=== PATIENT | female | born 1960 | race Caucasian/White ===

== ENCOUNTER → 2016-08-08 | Outpatient (CLI) | payer BC ==
[~2016-08-08] MED LIST: CLIN150C PO; CRDCD180 PO; HYDC25 PO; LISI40TA PO; POTA10CA28 PO
--- NOTE | 2016-08-08 09:23 | DIAGNOSTIC IMAGING REPORT ---
THYROID ULTRASOUND HISTORY: Follow-up thyroid nodules. COMPARISON: Thyroid ultrasound 08/01/2015. FINDINGS: Right lobe: 4.5 x 1.5 x 1.6 cm. No nodules. Left lobe: 4.4 x 1.4 x 1.3 cm. There is a 3 mm hypoechoic nodule within the interpolar region of the left thyroid lobe. Stable 9 x 8 mm hypoechoic nodule within the lower pole. Isthmus: 2 mm in thickness. No nodules. IMPRESSION: Stable 9 mm hypoechoic nodule within the lower pole of the left thyroid lobe. Electronically signed by: Ezequiel Ramsey M.D. 08/08/2016 9:22 AM Dictated Date/Time: 08/08/2016 9:20 AM
== END | disposition home or self-care (01) ==
LOC: C.ULTR 08:28
PROVIDERS: ATTEND Internal Medicine
DX: E04.1 Nontoxic single thyroid nodule (principal)

== ENCOUNTER → 2016-08-20 | Outpatient (CLI) | payer BC | END | disposition home or self-care (01) | LOC: C.PAPS 12:31 | PROVIDERS: ATTEND Obstetrics & Gynecology | DX: Z01.419 Encounter for gynecological examination (general) (routine) without abnormal findings (principal); N95.2 Postmenopausal atrophic vaginitis ==

== ENCOUNTER → 2016-12-21 | Outpatient (CLI) | payer BC ==
--- NOTE | 2016-12-24 07:44 | MAMMOGRAPHY REPORT ---
BILATERAL DIGITAL SCREENING MAMMOGRAM TOMOSYNTHESIS WITH CAD: 12/21/2016 CLINICAL HISTORY: Routine screening. Patient has no complaints. TECHNIQUE: Breast tomosynthesis in addition to standard 2D mammography was performed. Current study was also evaluated with a Computer Aided Detection (CAD) system. COMPARISON: Comparison is made to exams dated: 12/21/2015 mammogram, 11/24/2014 ultrasound, 11/24/2014 ma mmogram, 05/24/2014 ultrasound, 05/24/2014 mammogram, and 11/16/2013 ultrasound - [facility]. BREAST COMPOSITION: The tissue of both breasts is heterogeneously dense, which may obscure small mas ses. FINDINGS: No suspicious masses, calcifications, or areas of architectural distortion are noted in ei ther breast. There has been no significant interval change compared to prior exams. Circumscribed be nign-appearing 10 mm mass in the left superior breast at approximately 11 to 12:00 is decreased in si ze compared to the October 2013 exam and is therefore benign and likely represents a cyst. A linear sca r marker denotes a scar on the left anterior breast. A few scattered benign-appearing left breast ca lcifications are again noted. IMPRESSION: ACR BI-RADS CATEGORY 2: BENIGN There is no mammographic evidence of malignancy. A 1 year screening mammogram is recommended. The pa tient will receive written notification of the results. Approximately 10% of breast cancers are not detected with mammography. A negative mammographic report should not delay biopsy if a clinically suggestive mass is present. Grace Godwin M.D. /:12/21/2016 16:06:45 Armature Inspector: Gabi Soares, [facility] letter sent: Normal 1/2 BI-RADS Code: ACR BI-RADS Category 2: Benign
== END | disposition home or self-care (01) ==
LOC: C.MAMM 15:18
PROVIDERS: ATTEND Internal Medicine
DX: Z12.31 Encounter for screening mammogram for malignant neoplasm of breast (principal)

== ENCOUNTER → 2017-04-22 | Outpatient (CLI) | payer BC ==
[2017-04-22 12:12] LABS: BASO ABS # 0.04 K/uL (0-0.2); COMPLETE YES; EOS % 1.7 %; HEMATOCRIT 37.8 % (37-47); IG% 0.2 %; LYMPH % 33.3 %; LYMPH ABS # 1.35 K/uL (1.2-3.4); MEAN CELL VOLUME 91.1 fL (80-100); MEAN CORPUSCULAR HGB CONC 35.2 g/dl (32-36); MEAN PLATELET VOLUME 9.2 fL (7.4-10.4); MONO % 8.9 %; NEUT % 54.9 %; PLATELET COUNT 286 K/uL (130-400); RED BLOOD COUNT 4.15 M/uL (4.2-5.4); WHITE BLOOD COUNT 4.05 K/uL (4.8-10.8)
[2017-04-22 12:36] LABS: ALT/SGPT 24 U/L (12-78); BLOOD UREA NITROGEN 13 mg/dl (7-18); BUN/CREATININE RATIO 20.9 (10-20); CALCIUM 9.6 mg/dl (8.5-10.1); CARBON DIOXIDE 26 mmol/L (21-32); CHLORIDE 97 mmol/L (98-107); CHOLESTEROL 170 mg/dl (0-200); CREATININE 0.63 mg/dl (0.60-1.20); GLUCOSE 86 mg/dl (70-99); POTASSIUM 3.6 mmol/L (3.5-5.1); SODIUM 133 mmol/L (136-145)
[2017-04-22 12:47] LABS: ALB/GLOB RATIO 0.9 (0.9-2); ALKALINE PHOSPHATASE 73 U/L (45-117); AST/SGOT 23 U/L (15-37); CHOLESTEROL/HDL RATIO 2.4; HDL CHOLESTEROL 70 mg/dl; LDL CHOLESTEROL CALCULATED 82 mg/dl; TRIGLYCERIDES 92 mg/dl (0-150); VERY LOW DENSITY LIPOPROT CALC 18 mg/dl
== END | disposition home or self-care (01) ==
LOC: C.LABBFT 10:02
PROVIDERS: ATTEND Internal Medicine
DX: Z11.59 Encounter for screening for other viral diseases (principal); I71.2 Thoracic aortic aneurysm, without rupture

== ENCOUNTER 2022-07-09 19:56 | Observation (INO) ==
[2022-07-09] MEDS ORDERED: SODIUM CHLORIDE 0.9% 500 ML IV STA (20:03)
[2022-07-09 20:27] LABS: POC Urine Bilirubin Negative (Negative); POC Urine Blood Negative (Negative); POC Urine Glucose Normal (Normal); POC Urine Ketones Negative (Negative); POC Urine Leukocytes Negative (Negative); POC Urine Nitrite Negative (Negative); POC Urine Protein Trace (Negative); POC Urine Urobilinogen Normal (Normal); POC Urine pH 6 (4.5-7.5)
[2022-07-09 20:37] LABS: Appearance Urine Clear (Clear); Bilirubin Urine Negative (Negative); Blood Urine Negative (Negative); Color Urine Yellow; Glucose Urine UA Negative (Negative); Ketones Urine Negative (Negative); Leukocyte Esterase Urine Negative (Negative); Nitrite Urine Negative (Negative); Protein Urine Negative (Negative); Specific Gravity Urine 1.017 (1.000-1.030); Urobilinogen Urine Negative (Negative)
[2022-07-09 20:42] LABS: Basophils # (auto) 0.04 K/uL (0-0.2); Basophils % (auto) 0.7 %; Eosinophils # (auto) 0.06 K/uL (0-0.50); Hematocrit (blood only) 39.2 % (37.0-47.0); Hemoglobin 13.6 g/dl (12.0-16.0); Immature Granulocytes # (auto) 0.01 K/uL (0.01-0.20); Immature Granulocytes % (auto) 0.2 %; Lymphocytes # (auto) 2.01 K/uL (1.2-3.4); Lymphocytes % (auto) 33.8 %; Mean Corpuscular Hemoglobin 31.2 pg (25.0-34.0); Mean Corpuscular Hgb Conc 34.7 g/dL (32.0-36.0); Mean Corpuscular Volume 89.9 fL (80.0-100.0); Mean Platelet Volume 9.3 fL (9.4-12.4); Monocytes # (auto) 0.55 K/uL (0.11-0.59); Monocytes % (auto) 9.3 %; Neutrophils # (auto) 3.27 K/uL (1.40-6.50); Platelet Count 281 K/uL (130-400); RDW Coefficient of Variation 11.9 % (11.5-14.5); RDW Standard Deviation 38.8 fL (36.4-46.3); Red Blood Count 4.36 M/uL (4.20-5.40); White Blood Count 5.94 K/ul (4.8-10.8)
[2022-07-09 21:06] LABS: Albumin Level 4.3 gm/dl (3.4-5.0); Bilirubin,Total 0.3 mg/dl (0.2-1.0); Calcium 10.1 mg/dl (8.5-10.1); Potassium 3.8 mmol/L (3.5-5.1)
[2022-07-09 21:12] LABS: Albumin Globulin Ratio 1.3 (0.9-2); BUN Creatinine Ratio 23.3 (10-20); Creatinine Clr Calc Pharmacy 80.6 ml/min; Est GFR (African American) 102.3 ml/min; Est GFR (Non-African American) 88.3 ml/min; Globulin 3.2 gm/dl (2.5-4.0); Total Protein 7.5 gm/dl (6.0-8.3)
[2022-07-09] MEDS ORDERED: ONDANSETRON INJ 2 MG/ML 2 ML VIAL IV STA (22:43)
[2022-07-09] MEDS ORDERED: MoRPHine SULFATE 4 MG/ML 1 ML CARP\\VIAL IV PRN (22:43)
--- NOTE | 2022-07-09 22:56 | Emergency Department Note ---
History of Present Illness General Chief complaint: Flank Pain Stated complaint: STOMACH PAIN,BACK PAIN,NAUSEA Time Seen by Provider: 07/09/22 22:33 History of Present Illness Maximum Pain Intensity: 6 This is a 61-year-old female presenting to the emergency department for evaluation of right upper quadrant abdominal pain, nausea, and decreased appetite for the past 7 or 8 hours. The patient states that she ate lunch earlier today, and about 1 hour afterwards began with symptoms of pain in the right upper quadrant. The patient did have a small amount of breakfast cereal for dinner tonight, and this did not seem to worsen her symptoms. She states the pain is a sharp 6/10 that does not radiate. She has not had any difficulty using the bathroom. She does have a history of section and ovarian removal. She has not had any recent travel history. Home Medications Medication Instructions Recorded Confirmed Type cholecalciferol (vitamin D3) 25 25 mcg PO QAM 05/18/21 07/10/22 History mcg (1,000 unit) capsule (Vitamin D3) diltiazem HCl 180 mg 180 mg PO QAM 05/18/21 07/10/22 History tablet,extended release 24 hr furosemide 20 mg tablet 20 mg PO QAM 05/18/21 07/10/22 History lisinopril 40 mg tablet 40 mg PO QAM 05/18/21 07/10/22 History potassium chloride 10 mEq 10 meq PO QAM 05/18/21 07/10/22 History tablet,extended release Allergies Allergy/AdvReac Type Severity Reaction Status Date / Time tetracycline Allergy Intermediate RASH Verified 07/10/22 01:44 metoprolol AdvReac Mild fluid Verified 07/10/22 01:44 retention Past Med/Surg History Medical History Cardiac murmur Follows with [facility] cardiology Per 10/2020 ECHO- Mild posterior MVP; MV thickness moderately increased- m oderate MR History of COVID-19 tested positive pre op at [facility] 06/20/21 - asymptomatic. HTN (hypertension) Osteoarthritis Ovarian cyst Persistent- reason for procedure PONV (postoperative nausea and vomiting) Thoracic aortic aneurysm S/p ascending thoracic aneurysm repair on 09/29/2018 at [facility] [place] Follow up CTA 05/24/20 per 09/2020 cardio note- showed "stable postsurgial changes after repair of ascending thoracic aortic aneursym. No evidence of leak, pseudoaneurysm formation. Unchanged perigraft fluid. TMJ (temporomandibular joint disorder) Hx locking- no recent locking. Wears mouth guard qHS. Surgical History History of x 2 History of cardiac cath 07/10/2018: at [facility] [place] (pre surgery) No CAD uncovered History of colonoscopy History of D&C History of hernia surgery History of removal of cyst History of repair of thoracic aortic aneurysm History of shoulder surgery Rt History of wisdom tooth extraction Family History Other AAA (abdominal aortic aneurysm) No family history of adverse response to anesthesia Social History Smoking Status: Never smoker Second Hand Exposure: No; Hx Alcohol Use: Yes Alcohol type: beer, wine and hard liquor Hx Substance Use: No Preferred Language: Tamazight Communication Ability: Effective 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 [employer] Buildings Required: No Beliefs That Will Affect Care: None Current Living Situation: Spouse current occupation: retired/ part-time [employer] at [employer] Feels Safe at Home: Yes Safety Concerns: Feels Safe At This Time Assistive Devices: None Review of Systems A total of 10 systems reviewed and were otherwise negative Physical Exam Vital Signs Vital Signs - 24 hr 07/09/22 22:37 Pulse Rate [Right Finger] 80 Pulse Rhythm [Right Finger] Regular Respiratory Rate 18 Respiratory Effort / Characteristics Non-Labored Spontaneous Respiratory Depth Normal Respiratory Pattern Regular Blood Pressure [Right Arm] 145/90 H Blood Pressure Mean [Right Arm] 108 Blood Pressure Position [Right Arm] Lying Pulse Oximetry 97 Oxygen Delivery Method Room Air VITALS: Vitals are noted on the nurse's note and reviewed by myself. Vital signs stable. GENERAL: Well-developed, well-nourished, white female, who is in no acute distress and resting comfortably. Patient is cooperative with the examination. HEAD: Normocephalic atraumatic. NECK: Supple without nuchal rigidity. No lymphadenopathy. No thyromegaly. Cervical spine is nontender. HEART: Regular rate and rhythm with systolic murmur noted. LUNGS: Clear to auscultation bilaterally without wheezes, rales or rhonchi. No retractions or accessory muscle use. ABDOMEN: Positive normal bowel sounds x 4. Soft, nontender, without masses or organomegaly. No guarding or rebound tenderness. MUSCULOSKELETAL: No muscle atrophy, erythema, or edema noted. Full range of motion in all extremities. Course Administered Medications Diltiazem HCl (Diltiazem Hcl 180 Mg Capcr) 180 mg PO QAM [facility] Stop: 08/09/22 08:59 Last Admin: 07/10/22 08:48 Dose: 180 mg Documented By: RAVINDER Ceftriaxone Sodium 2,000 mg/ (Dextrose) 70 mls @ 100 mls/hr IV Q24H GIA; Protocol Stop: 07/20/22 06:59 Last Infusion: 07/10/22 08:30 Dose: 0 mls/hr Documented By: Admin: 07/10/22 07:42 Dose: 100 mls/hr Documented By: RAVINDER Sodium Chloride (Nss 1000ml) 1,000 mls @ 100 mls/hr IV .Q10H [facility] Stop: 08/09/22 06:18 Last Admin: 07/10/22 19:07 Dose: 100 mls/hr Documented By: Infusion: 07/10/22 19:07 Dose: 100 mls/hr Documented By: Infusion: 07/10/22 14:30 Dose: 100 mls/hr Documented By: Infusion: 07/10/22 11:30 Dose: 0 mls/hr Documented By: Admin: 07/10/22 06:30 Dose: 100 mls/hr Documented By: MELISSA Famotidine 20 mg/ Syringe 5 mls @ 2.5 mls/min IV Q12 [facility] Stop: 08/09/22 08:59 Last Admin: 07/10/22 07:43 Dose: 2.5 mls/min Documented By: RAVINDER Lisinopril (Lisinopril 40 Mg Tab) 40 mg PO QAM [facility] Stop: 08/09/22 08:59 Last Admin: 07/10/22 08:48 Dose: 40 mg Documented By: RAVINDER Morphine Sulfate (Morphine Sulfate 4 Mg/Ml 1 Ml Carp\\Vial) 4 mg IV Q3H PRN PRN Reason: Pain (6,7,8,9,10) Stop: 07/24/22 06:18 Last Admin: 07/10/22 14:33 Dose: 4 mg Documented By: RAVINDER Ondansetron HCl (Ondansetron Inj 2 Mg/Ml 2 Ml Vial) 4 mg IV Q4H PRN PRN Reason: Nausea And Vomiting Stop: 08/09/22 06:18 Last Admin: 07/10/22 16:11 Dose: 4 mg Documented By: RAVINDER Oxycodone/Acetaminophen (Oxycodone/Acetaminophen 5mg/325mg Tab) 1 tab PO Q4H PRN PRN Reason: 1st Line Pain Stop: 07/24/22 14:21 Last Admin: 07/10/22 16:11 Dose: 1 tab Documented By: RAVINDER Discontinued Medications Bupivacaine HCl/Epinephrine Bitart (Bupivacaine/Epinephrine 0.25% 1:200,000 30 Ml Vial) Confirm Administered Dose 30 ml .ROUTE .STK-MED ONE Stop: 07/10/22 12:34 Last Admin: 07/10/22 13:18 Dose: 30 ml Documented By: EMILIANA Fentanyl Citrate (Fentanyl Citrate 100 Mcg/2 Ml Vial) 25 mcg IV Q5M PRN PRN Reason: PACU Use Only-Pain Stop: 07/10/22 20:11 Last Admin: 07/10/22 13:51 Dose: 25 mcg Documented By: Admin: 07/10/22 13:46 Dose: 25 mcg Documented By: RAYMOND Sodium Chloride (Nss) 500 mls @ 999 mls/hr IV .Q31M STA Stop: 07/09/22 20:33 Last Infusion: 07/09/22 21:36 Dose: 0 mls/hr Documented By: Admin: 07/09/22 21:00 Dose: 999 mls/hr Documented By: TOÑO Cefoxitin Sodium (Mefoxin) 2,000 mg in 60 mls @ 100 mls/hr IV NOW STA Stop: 07/10/22 01:59 Last Infusion: 07/10/22 04:37 Dose: 0 mls/hr Documented By: Admin: 07/10/22 01:54 Dose: 100 mls/hr Documented By: DAVID Cefazolin Sodium (Ancef 2000mg) 2,000 mg in 15 mls @ 3.75 mls/min IV PREOP ONE; Protocol Stop: 07/10/22 12:11 Last Admin: 07/10/22 12:28 Dose: 3.75 mls/min Documented By: [id number] Morphine Sulfate (Morphine Sulfate 4 Mg/Ml 1 Ml Carp\\Vial) 4 mg IV Q30M PRN PRN Reason: Pain Stop: 07/23/22 22:42 Last Admin: 07/09/22 22:51 Dose: 4 mg Documented By: FERNANDA Ondansetron HCl (Ondansetron Inj 2 Mg/Ml 2 Ml Vial) 4 mg IV NOW STA Stop: 07/09/22 22:44 Last Admin: 07/09/22 22:46 Dose: Not Given Documented By: FERNANDA Medical Decision Making Differential Diagnosis Differential diagnosis: Etiologies such as biliary colic, cholecystitis, hepatitis, pancreatitis, cardiac disease, pancreatitis, gastritis, peptic ulcer disease, appendicitis, cystitis, diverticulitis, mesenteric ischemia, inflammatory bowel disease, ileus, bowel obstruction, testicular/adnexal torsion, aortic pathology, shingles, as well as others were considered Laboratory Data 07/09/22 20:14 07/09/22 20:03 Lab Results 07/09/22 07/09/22 07/09/22 Range/Units 20:03 20:03 20:14 WBC 5.94 (4.8-10.8) K/ul RBC 4.36 (4.20-5.40) M/uL Hgb 13.6 (12.0-16.0) g/dl Hct 39.2 (37.0-47.0) % MCV 89.9 (80.0-100.0) fL MCH 31.2 (25.0-34.0) pg MCHC 34.7 (32.0-36.0) g/dL RDW Std Deviation 38.8 (36.4-46.3) fL RDW Coeff of Zachery 11.9 (11.5-14.5) % Plt Count 281 (130-400) K/uL MPV 9.3 L (9.4-12.4) fL Immature Gran % (Auto) 0.2 % Neut % (Auto) 55.0 % Lymph % (Auto) 33.8 % [place] % (Auto) 9.3 % Eos % (Auto) 1.0 % Baso % (Auto) 0.7 % Neut # (Auto) 3.27 (1.40-6.50) K/uL Lymph # (Auto) 2.01 (1.2-3.4) K/uL [place] # (Auto) 0.55 (0.11-0.59) K/uL Eos # (Auto) 0.06 (0-0.50) K/uL Baso # (Auto) 0.04 (0-0.2) K/uL Immature Gran # (Auto) 0.01 (0.01-0.20) K/uL Sodium 137 (136-145) mmol/L Potassium 3.8 (3.5-5.1) mmol/L Chloride 102 (98-107) mmol/L Carbon Dioxide 29 (21-32) mmol/L Anion Gap 6 (3-11) BUN 17 (6-23) mg/dl Creatinine 0.73 (0.6-1.2) mg/dl Est Cr Clr Drug Dosing 80.6 ml/min Est GFR ( Amer) 102.3 ml/min Est GFR (Non-Af Amer) 88.3 ml/min BUN/Creatinine Ratio 23.3 H (10-20) Glucose 125 H (70-99(Fasting)) mg/dl Calcium 10.1 (8.5-10.1) mg/dl Total Bilirubin 0.3 (0.2-1.0) mg/dl AST 19 (13-39) U/L ALT 11 (7-52) U/L Alkaline Phosphatase 76 (34-104) U/L Total Protein 7.5 (6.0-8.3) gm/dl Albumin 4.3 (3.4-5.0) gm/dl Globulin 3.2 (2.5-4.0) gm/dl Albumin/Globulin Ratio 1.3 (0.9-2) Amylase 51 (25-115) U/L Lipase 39 (11-82) U/L Urine Color Urine Appearance (Clear) Urine pH (4.5-7.5) POC Urine pH (4.5-7.5) Ur Specific [place] (1.000-1.030) Urine Protein (Negative) POC Urine Protein (Negative) Urine Glucose (UA) (Negative) POC Ur Glucose (UA) (Normal) Urine Ketones (Negative) POC Urine Ketones (Negative) Urine Blood (Negative) POC Urine Blood (Negative) Urine Nitrite (Negative) POC Urine Nitrite (Negative) Urine Bilirubin (Negative) POC Urine Bilirubin (Negative) Urine Urobilinogen (Negative) POC Urine Urobilinogen (Normal) Ur Leukocyte Esterase (Negative) POC U Leukocyte Esteras (Negative) 07/09/22 07/09/22 07/09/22 Range/Units 20:14 20:14 20:15 WBC (4.8-10.8) K/ul RBC (4.20-5.40) M/uL Hgb (12.0-16.0) g/dl Hct (37.0-47.0) % MCV (80.0-100.0) fL MCH (25.0-34.0) pg MCHC (32.0-36.0) g/dL RDW Std Deviation (36.4-46.3) fL RDW Coeff of Zachery (11.5-14.5) % Plt Count (130-400) K/uL MPV (9.4-12.4) fL Immature Gran % (Auto) % Neut % (Auto) % Lymph % (Auto) % [place] % (Auto) % Eos % (Auto) % Baso % (Auto) % Neut # (Auto) (1.40-6.50) K/uL Lymph # (Auto) (1.2-3.4) K/uL [place] # (Auto) (0.11-0.59) K/uL Eos # (Auto) (0-0.50) K/uL Baso # (Auto) (0-0.2) K/uL Immature Gran # (Auto) (0.01-0.20) K/uL Sodium Cancelled (136-145) mmol/L Potassium Cancelled (3.5-5.1) mmol/L Chloride Cancelled (98-107) mmol/L Carbon Dioxide Cancelled (21-32) mmol/L Anion Gap Cancelled (3-11) BUN Cancelled (6-23) mg/dl Creatinine Cancelled (0.6-1.2) mg/dl Est Cr Clr Drug Dosing Cancelled ml/min Est GFR ( Amer) Cancelled ml/min Est GFR (Non-Af Amer) Cancelled ml/min BUN/Creatinine Ratio Cancelled (10-20) Glucose Cancelled (70-99(Fasting)) mg/dl Calcium Cancelled (8.5-10.1) mg/dl Total Bilirubin Cancelled (0.2-1.0) mg/dl AST Cancelled (13-39) U/L ALT Cancelled (7-52) U/L Alkaline Phosphatase Cancelled (34-104) U/L Total Protein Cancelled (6.0-8.3) gm/dl Albumin Cancelled (3.4-5.0) gm/dl Globulin Cancelled (2.5-4.0) gm/dl Albumin/Globulin Ratio Cancelled (0.9-2) Amylase (25-115) U/L Lipase (11-82) U/L Urine Color Yellow Urine Appearance Clear (Clear) Urine pH 6.0 (4.5-7.5) POC Urine pH 6 (4.5-7.5) Ur Specific [place] 1.017 (1.000-1.030) Urine Protein Negative (Negative) POC Urine Protein Trace H (Negative) Urine Glucose (UA) Negative (Negative) POC Ur Glucose (UA) Normal (Normal) Urine Ketones Negative (Negative) POC Urine Ketones Negative (Negative) Urine Blood Negative (Negative) POC Urine Blood Negative (Negative) Urine Nitrite Negative (Negative) POC Urine Nitrite Negative (Negative) Urine Bilirubin Negative (Negative) POC Urine Bilirubin Negative (Negative) Urine Urobilinogen Negative (Negative) POC Urine Urobilinogen Normal (Normal) Ur Leukocyte Esterase Negative (Negative) POC U Leukocyte Esteras Negative (Negative) Imaging Data Radiologist's Impression: Gallbladder Ultrasound 07/09/22 22:42 US gallbladder HISTORY: 61 years-old Female RUQ pain . Right upper quadrant abdominal pain COMPARISON: 07/11/2011 TECHNIQUE: Multiple real-time sonographic images of the abdominal right upper quadrant were obtained assessing grayscale appearance and color flow FINDINGS: The pancreas is obscured by bowel gas. Increased echogenicity of the liver. Hepatic cysts measure up to approximately 1.5 cm. Echogenic lesion of the right hepatic lobe measures 6.4 x 3.1 x 3.9 cm. On the prior study, several hepatic hemangiomata were noted measuring up to approximately 4.3 cm. Distended gallbladder measuring up to 9.9 cm in length. Edematous gallbladder wall thickening measures up to approximately 7 mm. Layering sludge with cholelithiasis and trace pericholecystic fluid. 7 mm stone within the gallbladde r neck appears to be nonmobile. Sonographic Merino sign was unable to be assessed secondary to pain medication recently administered to the patient. Common bile duct, 5 mm. The previous noted gallbladder polyps are not definitively seen. Imaged right kidney is unremarkable. IMPRESSION: 1. Cholelithiasis with findings suggestive of acute cholecystitis. 2. No biliary ductal dilation. 3. Echogenic lesion of the hepatic dome suggestive of a probable hemangioma. ACT 112: Negative or not required by law. The above report was generated using voice recognition software. It may contain grammatical, syntax or spelling errors. Electronically signed by: Yohannes Mejía M.D. 07/10/2022 8:19 AM ECG Data Attestation: I personally reviewed and interpreted this ECG as follows: Indication: + abdominal pain Additional Comments: Normal sinus rhythm @[address] elevation Normal ECG When compared with ECG of 16-APR-2012 11:08, Questionable change in QRS axis T wave amplitude has decreased in Lateral leads MDM Narrative Physical exam and history were performed. Nursing notes, EMR, and Medication Lis t were personally reviewed. No social concerns were identified as barriers to patients care. Patient appears to have right-sided abdominal pain after eating lunch today. Her pain seems to have eased after several hours. IV access was established and labs were obtained. She was hydrated and medicated as above. Because of her symptoms she went to ultrasound for further evaluation. An order was placed for continuous cardiac monitoring. The monitor shows a rate of 79 with normal sinus rhythm. Patient's blood work is as above and was reviewed. She does not have a significantly elevated white blood cell count, gross anemia, bandemia, or significant electrolyte imbalance. Lipase and transaminases are not diagnostic. Urine is without evidence of infection. Ultrasound is as above and reviewed by myself and radiology. It is highly suggestive of acute cholecystitis. Case was discussed with the on-call surgeon, Dr. Eaton, who will evaluate the patient at bedside. The patient was negative for COVID and Mefoxin was provided here in the ER. Please see Dr. Eaton's dictation for further patient course, plan, and disposition. The chart was completed utilizing [employer] Voice Recognition Software. Grammatical errors, random word insertions, pronoun errors, and incomplete sentences are an occasional consequence of this system due to software limitations, ambient noise, and hardware issues. Any formal questions or concerns about the content, text, or information contained within the body of this dictation should be directly addressed to the provider for clarification. . Impression & Plan Acute cholecystitis Discharge Plan Visit Data Chief Complaint: Flank Pain Stated Complaint: STOMACH PAIN,BACK PAIN,NAUSEA ED Provider: Earnest Horne ED Midlevel Provider: Seb Vieyra Discharge Problem: Acute cholecystitis Patient Disposition: Admitted As Inpatient Discharge Instructions Interventions: ED Discharge Assessment Last Done: 07/10/22 05:43
[2022-07-09 23:07] LABS: Amylase 51 U/L (25-115)
[2022-07-09 23:12] LABS: Lipase 39 U/L (11-82)
[2022-07-10] MEDS ORDERED: cefOXitin 2,000 MG/60 ML BAG IV STA (01:24)
[2022-07-10] MEDS ORDERED: MoRPHine SULFATE 4 MG/ML 1 ML CARP\\VIAL IV PRN (06:19)
[2022-07-10] MEDS ORDERED: PROMETHAZINE HCL 12.5 MG in SODIUM CHLORIDE 0.9% 50 ML IV PRN (06:19)
[2022-07-10] MEDS ORDERED: MoRPHine SULFATE 2 MG/ML CARP IV PRN (06:19)
[2022-07-10] MEDS: SODIUM CHLORIDE 0.9% 1000ML 1,000 ML IV SCH ×2 (06:30→19:07)
--- NOTE | 2022-07-10 07:36 | History & Physical Report ---
Date of Service July 10, 2022 Assessment & Plan (1) Acute calculous cholecystitis: Plan 61 year-old female with acute calculous cholecystitis. Normal wbc, t.bili and lfts . Ultrasound with gallstone in neck of gallbladder with wall thickening Plan: Proceed with laparoscopic cholecystectomy this afternoon with Dr. Owen. Discussed procedure and risks and all questions answered keep npo home bp meds this am will sign consent in preop continue IV Cefoxitin Discussed with Dr. Owen who agrees with above Admission and Anticipated Discharge Date Admission Date: July 10, 2022 History of Present Illness Chief Complaint: abdominal pain Primary Care Provider: Sherrie Umanzor MD Anabella is a 61 year-old female with history of thoracic aortic aneurysm s/p repair in [place] [facility] [place] , ovarian cyst s/p laparoscopic removal of left ovary, Hypertension, cardiac murmur, osteoarthritis, bilateral lower extremity edema who presented to emergency department last evening with abdominal pain that began after eating lunch yesterday. States she has been having some mild abdominal pain after eating for last week but had hamburger and polish fries yesterday for lunch and then had severe abdominal pain with associated nausea. Denies fever, chills, vomiting, changes in bowel habits, chest pain , shortness of breath. States she was having alot of pain which was not resolved and presented to ED Current feeling much better, had pain medication and pain mostly resolved. No further nausea. No vomiting. No chest pain or shortness of breath. No prior history of gallbladder issues. History of thoracic aortic aneurysm repair [place] [facility], stable CTA in may. No cardiac complications or issues since surgery. History of laparoscopic bilateral oophorectomy in July 2021. Allergies Allergy/AdvReac Type Severity Reaction Status Date / Time tetracycline Allergy Intermediate RASH Verified 07/10/22 01:44 metoprolol AdvReac Mild fluid Verified 07/10/22 01:44 retention Home Medications Medication Instructions Recorded Confirmed Type cholecalciferol (vitamin D3) 25 25 mcg PO QAM 05/18/21 07/10/22 History mcg (1,000 unit) capsule (Vitamin D3) diltiazem HCl 180 mg 180 mg PO QAM 05/18/21 07/10/22 History tablet,extended release 24 hr furosemide 20 mg tablet 20 mg PO QAM 05/18/21 07/10/22 History lisinopril 40 mg tablet 40 mg PO QAM 05/18/21 07/10/22 History potassium chloride 10 mEq 10 meq PO QAM 05/18/21 07/10/22 History tablet,extended release Past Med/Surg History Medical History Cardiac murmur Follows with [facility] cardiology Per 10/2020 ECHO- Mild posterior MVP; MV thickness moderately increased- moderate MR History of COVID-19 tested positive pre op at [facility] 06/20/21 - asymptomatic. HTN (hypertension) Osteoarthritis Ovarian cyst Persistent- reason for procedure PONV (postoperative nausea and vomiting) Thoracic aortic aneurysm S/p ascending thoracic aneurysm repair on 09/29/2018 at [facility] Follow up CTA 05/24/20 per 09/2020 cardio note- showed "stable postsurgial changes after repair of ascending thoracic aortic aneursym. No evidence of leak, pseudoaneurysm formation. Unchanged perigraft fluid. TMJ (temporomandibular joint disorder) Hx locking- no recent locking. Wears mouth guard qHS. Surgical History History of x 2 History of cardiac cath 07/10/2018: at [facility] (pre surgery) No CAD uncovered History of colonoscopy History of D&C History of hernia surgery History of removal of cyst History of repair of thoracic aortic aneurysm History of shoulder surgery Rt History of wisdom tooth extraction Family History Other AAA (abdominal aortic aneurysm) No family history of adverse response to anesthesia Social History Smoking Status: Never smoker Second Hand Exposure: No; Hx Alcohol Use: Yes Alcohol type: beer, wine and hard liquor Hx Substance Use: No Preferred Language: Armenian Communication Ability: Effective Still Operator Batch Or Continuous Required: No Beliefs That Will Affect Care: None Current Living Situation: Spouse current occupation: retired/ part-time Stonemason at [employer] Feels Safe at Home: Yes Safety Concerns: Feels Safe At This Time Assistive Devices: None Physical Exam Constitutional: WD/WN, vitals as above cooperative and comfortable; no acute distress and not ill appearing Neck: normal visual inspection and trachea midline Respiratory: normal respiratory effort, lungs clear to auscultation Cardiovascular: RRR, no murmur, no edema Gastrointestinal (Abdomen): Inspection/Auscultation: abdomen normal to inspection; abdomen not distended Percussion/Palpation: + abdomen tender (RUQ on deep palpation) and abdomen soft; no guarding and abdomen not rigid Skin: no rashes, warm and dry no jaundice Psychiatric: A+Ox3, euthymic affect Results & Data Results & Data ([facility]) Vital Signs (Past 12 Hours) Vital Signs Temp Pulse Pulse Resp BP BP Pulse Ox 07/10/22 06:24 36.3 C L 82 18 157/92 H 98 07/10/22 05:38 72 17 108/80 98 07/10/22 04:00 69 17 124/74 97 07/10/22 01:45 72 07/10/22 01:46 64 18 132/84 97 07/09/22 22:37 80 18 145/90 H 97 07/09/22 20:00 36.7 C 79 16 152/93 H 98 O2 Del Method 07/10/22 06:24 Room Air 07/10/22 05:38 Room Air 07/10/22 04:00 Room Air 07/10/22 01:45 07/10/22 01:46 Room Air 07/09/22 22:37 Room Air 07/09/22 20:00 Room Air Laboratory Results 07/10/22 07/09/22 07/09/22 Range/Units 01:43 20:15 20:14 WBC (4.8-10.8) K/ul RBC (4.20-5.40) M/uL Hgb (12.0-16.0) g/dl Hct (37.0-47.0) % MCV (80.0-100.0) fL MCH (25.0-34.0) pg MCHC (32.0-36.0) g/dL RDW Std Deviation (36.4-46.3) fL RDW Coeff of Zachery (11.5-14.5) % Plt Count (130-400) K/uL MPV (9.4-12.4) fL Immature Gran % (Auto) % Neut % (Auto) % Lymph % (Auto) % [place] % (Auto) % Eos % (Auto) % Baso % (Auto) % Neut # (Auto) (1.40-6.50) K/uL Lymph # (Auto) (1.2-3.4) K/uL [place] # (Auto) (0.11-0.59) K/uL Eos # (Auto) (0-0.50) K/uL Baso # (Auto) (0-0.2) K/uL Immature Gran # (Auto) (0.01-0.20) K/uL Sodium (136-145) mmol/L Potassium (3.5-5.1) mmol/L Chloride (98-107) mmol/L Carbon Dioxide (21-32) mmol/L Anion Gap (3-11) BUN (6-23) mg/dl Creatinine (0.6-1.2) mg/dl Est Cr Clr Drug Dosing ml/min Est GFR ( Amer) ml/min Est GFR (Non-Af Amer) ml/min BUN/Creatinine Ratio (10-20) Glucose (70-99(Fasting)) mg/dl Calcium (8.5-10.1) mg/dl Total Bilirubin (0.2-1.0) mg/dl AST (13-39) U/L ALT (7-52) U/L Alkaline Phosphatase (34-104) U/L Total Protein (6.0-8.3) gm/dl Albumin (3.4-5.0) gm/dl Globulin (2.5-4.0) gm/dl Albumin/Globulin Ratio (0.9-2) Amylase (25-115) U/L Lipase (11-82) U/L Urine Color Yellow Urine Appearance Clear (Clear) Urine pH 6.0 (4.5-7.5) POC Urine pH 6 (4.5-7.5) Ur Specific [place] 1.017 (1.000-1.030) Urine Protein Negative (Negative) POC Urine Protein Trace H (Negative) Urine Glucose (UA) Negative (Negative) POC Ur Glucose (UA) Normal (Normal) Urine Ketones Negative (Negative) POC Urine Ketones Negative (Negative) Urine Blood Negative (Negative) POC Urine Blood Negative (Negative) Urine Nitrite Negative (Negative) POC Urine Nitrite Negative (Negative) Urine Bilirubin Negative (Negative) POC Urine Bilirubin Negative (Negative) Urine Urobilinogen Negative (Negative) POC Urine Urobilinogen Normal (Normal) Ur Leukocyte Esterase Negative (Negative) POC U Leukocyte Esteras Negative (Negative) SARS-CoV-2, RNA, NAAT NEGATIVE (NEGATIVE) 07/09/22 07/09/22 07/09/22 Range/Units 20:14 20:14 20:03 WBC 5.94 (4.8-10.8) K/ul RBC 4.36 (4.20-5.40) M/uL Hgb 13.6 (12.0-16.0) g/dl Hct 39.2 (37.0-47.0) % MCV 89.9 (80.0-100.0) fL MCH 31.2 (25.0-34.0) pg MCHC 34.7 (32.0-36.0) g/dL RDW Std Deviation 38.8 (36.4-46.3) fL RDW Coeff of Zachery 11.9 (11.5-14.5) % Plt Count 281 (130-400) K/uL MPV 9.3 L (9.4-12.4) fL Immature Gran % (Auto) 0.2 % Neut % (Auto) 55.0 % Lymph % (Auto) 33.8 % [place] % (Auto) 9.3 % Eos % (Auto) 1.0 % Baso % (Auto) 0.7 % Neut # (Auto) 3.27 (1.40-6.50) K/uL Lymph # (Auto) 2.01 (1.2-3.4) K/uL [place] # (Auto) 0.55 (0.11-0.59) K/uL Eos # (Auto) 0.06 (0-0.50) K/uL Baso # (Auto) 0.04 (0-0.2) K/uL Immature Gran # (Auto) 0.01 (0.01-0.20) K/uL Sodium Cancelled (136-145) mmol/L Potassium Cancelled (3.5-5.1) mmol/L Chloride Cancelled (98-107) mmol/L Carbon Dioxide Cancelled (21-32) mmol/L Anion Gap Cancelled (3-11) BUN Cancelled (6-23) mg/dl Creatinine Cancelled (0.6-1.2) mg/dl Est Cr Clr Drug Dosing Cancelled ml/min Est GFR ( Amer) Cancelled ml/min Est GFR (Non-Af Amer) Cancelled ml/min BUN/Creatinine Ratio Cancelled (10-20) Glucose Cancelled (70-99(Fasting)) mg/dl Calcium Cancelled (8.5-10.1) mg/dl Total Bilirubin Cancelled (0.2-1.0) mg/dl AST Cancelled (13-39) U/L ALT Cancelled (7-52) U/L Alkaline Phosphatase Cancelled (34-104) U/L Total Protein Cancelled (6.0-8.3) gm/dl Albumin Cancelled (3.4-5.0) gm/dl Globulin Cancelled (2.5-4.0) gm/dl Albumin/Globulin Ratio Cancelled (0.9-2) Amylase 51 (25-115) U/L Lipase 39 (11-82) U/L Urine Color Urine Appearance (Clear) Urine pH (4.5-7.5) POC Urine pH (4.5-7.5) Ur Specific [place] (1.000-1.030) Urine Protein (Negative) POC Urine Protein (Negative) Urine Glucose (UA) (Negative) POC Ur Glucose (UA) (Normal) Urine Ketones (Negative) POC Urine Ketones (Negative) Urine Blood (Negative) POC Urine Blood (Negative) Urine Nitrite (Negative) POC Urine Nitrite (Negative) Urine Bilirubin (Negative) POC Urine Bilirubin (Negative) Urine Urobilinogen (Negative) POC Urine Urobilinogen (Normal) Ur Leukocyte Esterase (Negative) POC U Leukocyte Esteras (Negative) SARS-CoV-2, RNA, NAAT (NEGATIVE) 07/09/22 Range/Units 20:03 WBC (4.8-10.8) K/ul RBC (4.20-5.40) M/uL Hgb (12.0-16.0) g/dl Hct (37.0-47.0) % MCV (80.0-100.0) fL MCH (25.0-34.0) pg MCHC (32.0-36.0) g/dL RDW Std Deviation (36.4-46.3) fL RDW Coeff of Zachery (11.5-14.5) % Plt Count (130-400) K/uL MPV (9.4-12.4) fL Immature Gran % (Auto) % Neut % (Auto) % Lymph % (Auto) % [place] % (Auto) % Eos % (Auto) % Baso % (Auto) % Neut # (Auto) (1.40-6.50) K/uL Lymph # (Auto) (1.2-3.4) K/uL [place] # (Auto) (0.11-0.59) K/uL Eos # (Auto) (0-0.50) K/uL Baso # (Auto) (0-0.2) K/uL Immature Gran # (Auto) (0.01-0.20) K/uL Sodium 137 (136-145) mmol/L Potassium 3.8 (3.5-5.1) mmol/L Chloride 102 (98-107) mmol/L Carbon Dioxide 29 (21-32) mmol/L Anion Gap 6 (3-11) BUN 17 (6-23) mg/dl Creatinine 0.73 (0.6-1.2) mg/dl Est Cr Clr Drug Dosing 80.6 ml/min Est GFR ( Amer) 102.3 ml/min Est GFR (Non-Af Amer) 88.3 ml/min BUN/Creatinine Ratio 23.3 H (10-20) Glucose 125 H (70-99(Fasting)) mg/dl Calcium 10.1 (8.5-10.1) mg/dl Total Bilirubin 0.3 (0.2-1.0) mg/dl AST 19 (13-39) U/L ALT 11 (7-52) U/L Alkaline Phosphatase 76 (34-104) U/L Total Protein 7.5 (6.0-8.3) gm/dl Albumin 4.3 (3.4-5.0) gm/dl Globulin 3.2 (2.5-4.0) gm/dl Albumin/Globulin Ratio 1.3 (0.9-2) Amylase (25-115) U/L Lipase (11-82) U/L Urine Color Urine Appearance (Clear) Urine pH (4.5-7.5) POC Urine pH (4.5-7.5) Ur Specific [place] (1.000-1.030) Urine Protein (Negative) POC Urine Protein (Negative) Urine Glucose (UA) (Negative) POC Ur Glucose (UA) (Normal) Urine Ketones (Negative) POC Urine Ketones (Negative) Urine Blood (Negative) POC Urine Blood (Negative) Urine Nitrite (Negative) POC Urine Nitrite (Negative) Urine Bilirubin (Negative) POC Urine Bilirubin (Negative) Urine Urobilinogen (Negative) POC Urine Urobilinogen (Normal) Ur Leukocyte Esterase (Negative) POC U Leukocyte Esteras (Negative) SARS-CoV-2, RNA, NAAT (NEGATIVE) Diagnostic Findings US gallbladder HISTORY: 61 years-old Female RUQ pain . Right upper quadrant abdominal pain COMPARISON: 07/11/2011 TECHNIQUE: Multiple real-time sonographic images of the abdominal right upper quadrant were obtained assessing grayscale appearance and color flow FINDINGS: The pancreas is obscured by bowel gas. Increased echogenicity of the liver. Hepatic cysts measure up to approximately 1.5 cm. Echogenic lesion of the right hepatic lobe measures 6.4 x 3.1 x 3.9 cm. On the prior study, several hepatic hemangiomata were noted measuring up to approximately 4.3 cm. Distended gallbladder measuring up to 9.9 cm in length. Edematous gallbladder wall thickening measures up to approximately 7 mm. Layering sludge with cholelithiasis and trace pericholecystic fluid. 7 mm stone within the gallbladder neck appears to be nonmobile. Sonographic Merino sign was unable to be assessed secondary to pain medication recently administered to the patient. Common bile duct, 5 mm. The previous noted gallbladder polyps are not definitively seen. Imaged right kidney is unremarkable. IMPRESSION: 1. Cholelithiasis with findings suggestive of acute cholecystitis. 2. No biliary ductal dilation. 3. Echogenic lesion of the hepatic dome suggestive of a probable hemangioma. Code Status & VTE Plan VTE Prophylaxis Plan VTE Prophylaxis will be ordered: Yes
[2022-07-10] MEDS: cefTRIAXone SODIUM 2,000 MG in DEXTROSE 5% 50 ML IV SCH (07:42)
[2022-07-10] MEDS: FAMOTIDINE 20 MG in SYRINGE 3 ML IV SCH ×2 (07:43→21:20)
--- NOTE | 2022-07-10 08:20 | Ultrasound Report ---
US gallbladder HISTORY: 61 years-old Female RUQ pain . Right upper quadrant abdominal pain COMPARISON: 07/11/2011 TECHNIQUE: Multiple real-time sonographic images of the abdominal right upper quadrant were obtained assessing grayscale appearance and color flow FINDINGS: The pancreas is obscured by bowel gas. Increased echogenicity of the liver. Hepatic cysts measure up to approximately 1.5 cm. Echogenic lesion of the right hepatic lobe measures 6.4 x 3.1 x 3.9 cm. On t he prior study, several hepatic hemangiomata were noted measuring up to approximately 4.3 cm. Distended gallbladder measuring up to 9.9 cm in length. Edematous gallbladder wall thickening measure s up to approximately 7 mm. Layering sludge with cholelithiasis and trace pericholecystic fluid. 7 mm stone within the gallbladder neck appears to be nonmobile. Sonographic Merino sign was unable to be assessed secondary to pain medication recently administered to the patient. Common bile duct, 5 mm. T he previous noted gallbladder polyps are not definitively seen. Imaged right kidney is unremarkable. IMPRESSION: 1. Cholelithiasis with findings suggestive of acute cholecystitis. 2. No biliary ductal dilation. 3. Echogenic lesion of the hepatic dome suggestive of a probable hemangioma. ACT 112: Negative or not required by law. The above report was generated using voice recognition software. It may contain grammatical, syntax o r spelling errors. Electronically signed by: Yohannes Mejía M.D. 07/10/2022 8:19 AM
--- NOTE | 2022-07-10 08:32 | Anesthesiology Consultation ---
Date of Service July 10, 2022 Assessment & Plan (1) Encounter for pre-operative examination: Chart Review Chart Review: Acceptable Risk for Surgery and Patient NOT seen in Pre Admission Testing Consults Requested none History Surgery Operation Date: 07/10/22 11:10 Proposed Procedures p Laparoscopic Cholecystectomy - Delon Owen MD Height/Weight Height: 5 ft 8 in Weight: 68.039 kg Allergies Allergy/AdvReac Type Severity Reaction Status Date / Time tetracycline Allergy Intermediate RASH Verified 07/10/22 01:44 metoprolol AdvReac Mild fluid Verified 07/10/22 01:44 retention Medications Home Medications Medication Instructions Recorded Confirmed Last Taken cholecalciferol (vitamin D3) 25 25 mcg PO QAM 05/18/21 07/10/22 07/27/21 07:00 mcg (1,000 unit) capsule (Vitamin D3) diltiazem HCl 180 mg 180 mg PO QAM 05/18/21 07/10/22 07/28/21 06:00 tablet,extended release 24 hr furosemide 20 mg tablet 20 mg PO QAM 05/18/21 07/10/22 07/27/21 07:00 lisinopril 40 mg tablet 40 mg PO QAM 05/18/21 07/10/22 07/27/21 07:00 potassium chloride 10 mEq 10 meq PO QAM 05/18/21 07/10/22 07/27/21 07:00 tablet,extended release Active Medications Generic Name Dose Route Start Last Admin Trade Name Freq PRN Reason Stop Dose Admin Ceftriaxone Sodium 2,000 mg/ 70 mls @ 100 mls/hr 07/10/22 07:00 07/10/22 07:42 Dextrose IV 07/20/22 06:59 100 mls/hr Q24H GIA Administration Protocol Sodium Chloride 1,000 mls @ 100 mls/hr 07/10/22 06:19 07/10/22 06:30 Nss 1000ml IV 08/09/22 06:18 100 mls/hr .Q10H GIA Administration Famotidine 20 mg/ Syringe 5 mls @ 2.5 mls/min 07/10/22 09:00 07/10/22 07:43 IV 08/09/22 08:59 2.5 mls/min Q12 GIA Administration Past Medical History Medical History Cardiac murmur Follows with [facility] cardiology Per 10/2020 ECHO- Mild posterior MVP; MV thickness moderately increased- mod erate MR History of COVID-19 tested positive pre op at [facility] 06/20/21 - asymptomatic. HTN (hypertension) Osteoarthritis Ovarian cyst Persistent- reason for procedure PONV (postoperative nausea and vomiting) Thoracic aortic aneurysm S/p ascending thoracic aneurysm repair on 09/29/2018 at [facility] [place] Follow up CTA 05/24/20 per 09/2020 cardio note- showed "stable postsurgial changes after repair of ascending thoracic aortic aneursym. No evidence of leak, pseudoaneurysm formation. Unchanged perigraft fluid. TMJ (temporomandibular joint disorder) Hx locking- no recent locking. Wears mouth guard qHS. Past Family History Family History Other AAA (abdominal aortic aneurysm) No family history of adverse response to anesthesia Past Surgical History Surgical History History of x 2 History of cardiac cath 07/10/2018: at [facility] [place] (pre surgery) No CAD uncovered History of colonoscopy History of D&C History of hernia surgery History of removal of cyst History of repair of thoracic aortic aneurysm History of shoulder surgery Rt History of wisdom tooth extraction Social History Smoking Status: Never smoker Hx Alcohol Use: Yes Alcohol type: beer, wine and hard liquor alcohol intake frequency: holidays/special occasions only Hx Substance Use: No substance use type: does not use Physical Exam Vital Signs Last Vital Signs Temp 97.4 F L 07/10/22 06:24 Pulse 82 07/10/22 06:24 Resp 18 07/10/22 06:24 BP 157/92 H 07/10/22 06:24 Pulse Ox 98 07/10/22 06:24 O2 Del Method Room Air 07/10/22 06:24 Testing Laboratory Results 07/09/22 20:14 07/09/22 20:14 Urine Color Yellow 07/09/22 20:15 Urine Appearance Clear (Clear) 07/09/22 20:15 Urine pH 6.0 (4.5-7.5) 07/09/22 20:15 Ur Specific [place] 1.017 (1.000-1.030) 07/09/22 20:15 Urine Protein Negative (Negative) 07/09/22 20:15 Urine Glucose (UA) Negative (Negative) 07/09/22 20:15 Urine Ketones Negative (Negative) 07/09/22 20:15 Urine Nitrite Negative (Negative) 07/09/22 20:15 Ur Leukocyte Esterase Negative (Negative) 07/09/22 20:15 Electrocardiogram Date: 05/31/21 Findings: + NSR @ Echocardiogram Date: 11/03/21 EF: 55-60 LV Function: normal
[2022-07-10] MEDS: dilTIAZem HCL 180 MG CAPCR PO SCH (08:48)
[2022-07-10] MEDS: lisinopril 40 MG TAB PO SCH (08:48)
[2022-07-10] MEDS ORDERED: PROPOFOL IV EMULSION 10 MG/ML 20 ML VIAL IV ONE (09:57)
[2022-07-10] MEDS ORDERED: ROCURONIUM BROMIDE 10 MG/ML 5 ML VIAL IV ONE ×5 (09:58)
[2022-07-10] MEDS ORDERED: LIDOCAINE 2% MPF LOCAL 5 ML VIAL INFIL ONE (09:58)
[2022-07-10] MEDS ORDERED: DEXAMETHASONE SOD INJ 4 MG/ML VIAL ONE (10:01)
[2022-07-10] MEDS ORDERED: fentaNYL citrate 100 MCG/2 ML VIAL ONE (10:02)
[2022-07-10] MEDS ORDERED: MIDAZOLAM HCL 1 MG/ML 2ML VIAL ONE (10:02)
[2022-07-10] MEDS ORDERED: VASOPRESSIN 20 UNIT/ML VIAL ONE (10:48)
[2022-07-10] MEDS ORDERED: ceFAZolin 2000MG 2,000 MG/15 ML SYR IV ONE (12:08)
[2022-07-10] MEDS ORDERED: ATROPINE SULFATE 0.1 MG/ML 10ML SYR IV PRN (12:11)
[2022-07-10] MEDS ORDERED: ePHEDrine sulfate 50 MG/ML AMP IV PRN (12:11)
[2022-07-10] MEDS ORDERED: PROMETHAZINE HCL 6.25 MG in SODIUM CHLORIDE 0.9% 50 ML IV PRN (12:11)
--- NOTE | 2022-07-10 12:11 | History & Physical Report ---
Date of Service July 10, 2022 Assessment & Plan (1) Acute cholecystitis: Plan 61-year-old woman with acute cholecystitis. I discussed the risks and benefits of laparoscopic cholecystectomy with her. All questions were answered, she is agreeable to proceed. She signed consent. We will take her to the operating room at the earliest convenience. Admission and Anticipated Discharge Date Admission Date: July 10, 2022 History of Present Illness Primary Care Provider: Sherrie Umanzor MD 61-year-old woman with 2-week history of on and off right upper quadrant epigastric pain and nausea. It has been happening with food. She developed severe pain yesterday evening and was seen in the emergency department. She denies fevers or chills. She denies other complaints. Ultrasound demonstrates acute cholecystitis. Currently her pain has subsided. She denies dark urine, chalky white stools, jaundice. Allergies Allergy/AdvReac Type Severity Reaction Status Date / Time tetracycline Allergy Intermediate RASH Verified 07/10/22 01:44 metoprolol AdvReac Mild fluid Verified 07/10/22 01:44 retention Home Medications Medication Instructions Recorded Confirmed Type cholecalciferol (vitamin D3) 25 25 mcg PO QAM 05/18/21 07/10/22 History mcg (1,000 unit) capsule (Vitamin D3) diltiazem HCl 180 mg 180 mg PO QAM 05/18/21 07/10/22 History tablet,extended release 24 hr furosemide 20 mg tablet 20 mg PO QAM 05/18/21 07/10/22 History lisinopril 40 mg tablet 40 mg PO QAM 05/18/21 07/10/22 History potassium chloride 10 mEq 10 meq PO QAM 05/18/21 07/10/22 History tablet,extended release Past Med/Surg History Medical History Cardiac murmur Follows with [facility] cardiology Per 10/2020 ECHO- Mild posterior MVP; MV thickness moderately increased- moderate MR History of COVID-19 tested positive pre op at [facility] 06/20/21 - asymptomatic. HTN (hypertension) Osteoarthritis Ovarian cyst Persistent- reason for procedure PONV (postoperative nausea and vomiting) Thoracic aortic aneurysm S/p ascending thoracic aneurysm repair on 09/29/[address] [facility] [place] Follow up CTA 05/24/20 per 09/2020 cardio note- showed "stable postsurgial changes after repair of ascending thoracic aortic aneursym. No evidence of leak, pseudoaneurysm formation. Unchanged perigraft fluid. TMJ (temporomandibular joint disorder) Hx locking- no recent locking. Wears mouth guard qHS. Surgical History History of x 2 History of cardiac cath 07/10/2018: at [facility] [place] (pre surgery) No CAD uncovered History of colonoscopy History of D&C History of hernia surgery History of removal of cyst History of repair of thoracic aortic aneurysm History of shoulder surgery Rt History of wisdom tooth extraction Family History Other AAA (abdominal aortic aneurysm) No family history of adverse response to anesthesia Social History Smoking Status: Never smoker Second Hand Exposure: No; Hx Alcohol Use: Yes Alcohol type: beer, wine and hard liquor Hx Substance Use: No Preferred Language: Honduran Communication Ability: Effective Special Client Bus Driver Required: No Beliefs That Will Affect Care: None Current Living Situation: Spouse 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 [employer] Feels Safe at Home: Yes Safety Concerns: Feels Safe At This Time Assistive Devices: None Review of Systems Review of Systems: All systems reviewed & are unremarkable except as noted in HPI & below Physical Exam Constitutional: WD/WN, vitals as above Eyes: PERRL, conjunctivae normal, anicteric sclerae Neck: trachea midline, no thyromegaly Respiratory: normal respiratory effort, lungs clear to auscultation Cardiovascular: RRR, no murmur, no edema Gastrointestinal (Abdomen): Inspection/Auscultation: abdomen normal to inspection; abdomen not distended Percussion/Palpation: + abdomen tender (RUQ) and abdomen soft; no guarding and abdomen not rigid Skin: no rashes, warm and dry Psychiatric: A+Ox3, euthymic affect Results & Data Results & Data ([facility]) Vital Signs (Past 12 Hours) Vital Signs Temp Pulse Pulse Resp BP Pulse Ox O2 Del Method 07/10/22 06:24 36.3 C L 82 18 157/92 H 98 Room Air 07/10/22 05:38 72 17 108/80 98 Room Air 07/10/22 04:00 69 17 124/74 97 Room Air 07/10/22 01:45 72 07/10/22 01:46 64 18 132/84 97 Room Air Laboratory Results 07/10/22 07/09/22 07/09/22 Range/Units 01:43 20:15 20:14 WBC (4.8-10.8) K/ul RBC (4.20-5.40) M/uL Hgb (12.0-16.0) g/dl Hct (37.0-47.0) % MCV (80.0-100.0) fL MCH (25.0-34.0) pg MCHC (32.0-36.0) g/dL RDW Std Deviation (36.4-46.3) fL RDW Coeff of Zachery (11.5-14.5) % Plt Count (130-400) K/uL MPV (9.4-12.4) fL Immature Gran % (Auto) % Neut % (Auto) % Lymph % (Auto) % [place] % (Auto) % Eos % (Auto) % Baso % (Auto) % Neut # (Auto) (1.40-6.50) K/uL Lymph # (Auto) (1.2-3.4) K/uL [place] # (Auto) (0.11-0.59) K/uL Eos # (Auto) (0-0.50) K/uL Baso # (Auto) (0-0.2) K/uL Immature Gran # (Auto) (0.01-0.20) K/uL Sodium (136-145) mmol/L Potassium (3.5-5.1) mmol/L Chloride (98-107) mmol/L Carbon Dioxide (21-32) mmol/L Anion Gap (3-11) BUN (6-23) mg/dl Creatinine (0.6-1.2) mg/dl Est Cr Clr Drug Dosing ml/min Est GFR ( Amer) ml/min Est GFR (Non-Af Amer) ml/min BUN/Creatinine Ratio (10-20) Glucose (70-99(Fasting)) mg/dl Calcium (8.5-10.1) mg/dl Total Bilirubin (0.2-1.0) mg/dl AST (13-39) U/L ALT (7-52) U/L Alkaline Phosphatase (34-104) U/L Total Protein (6.0-8.3) gm/dl Albumin (3.4-5.0) gm/dl Globulin (2.5-4.0) gm/dl Albumin/Globulin Ratio (0.9-2) Amylase (25-115) U/L Lipase (11-82) U/L Urine Color Yellow Urine Appearance Clear (Clear) Urine pH 6.0 (4.5-7.5) POC Urine pH 6 (4.5-7.5) Ur Specific [place] 1.017 (1.000-1.030) Urine Protein Negative (Negative) POC Urine Protein Trace H (Negative) Urine Glucose (UA) Negative (Negative) POC Ur Glucose (UA) Normal (Normal) Urine Ketones Negative (Negative) POC Urine Ketones Negative (Negative) Urine Blood Negative (Negative) POC Urine Blood Negative (Negative) Urine Nitrite Negative (Negative) POC Urine Nitrite Negative (Negative) Urine Bilirubin Negative (Negative) POC Urine Bilirubin Negative (Negative) Urine Urobilinogen Negative (Negative) POC Urine Urobilinogen Normal (Normal) Ur Leukocyte Esterase Negative (Negative) POC U Leukocyte Esteras Negative (Negative) SARS-CoV-2, RNA, NAAT NEGATIVE (NEGATIVE) 07/09/22 07/09/22 07/09/22 Range/Units 20:14 20:14 20:03 WBC 5.94 (4.8-10.8) K/ul RBC 4.36 (4.20-5.40) M/uL Hgb 13.6 (12.0-16.0) g/dl Hct 39.2 (37.0-47.0) % MCV 89.9 (80.0-100.0) fL MCH 31.2 (25.0-34.0) pg MCHC 34.7 (32.0-36.0) g/dL RDW Std Deviation 38.8 (36.4-46.3) fL RDW Coeff of Zachery 11.9 (11.5-14.5) % Plt Count 281 (130-400) K/uL MPV 9.3 L (9.4-12.4) fL Immature Gran % (Auto) 0.2 % Neut % (Auto) 55.0 % Lymph % (Auto) 33.8 % [place] % (Auto) 9.3 % Eos % (Auto) 1.0 % Baso % (Auto) 0.7 % Neut # (Auto) 3.27 (1.40-6.50) K/uL Lymph # (Auto) 2.01 (1.2-3.4) K/uL [place] # (Auto) 0.55 (0.11-0.59) K/uL Eos # (Auto) 0.06 (0-0.50) K/uL Baso # (Auto) 0.04 (0-0.2) K/uL Immature Gran # (Auto) 0.01 (0.01-0.20) K/uL Sodium Cancelled (136-145) mmol/L Potassium Cancelled (3.5-5.1) mmol/L Chloride Cancelled (98-107) mmol/L Carbon Dioxide Cancelled (21-32) mmol/L Anion Gap Cancelled (3-11) BUN Cancelled (6-23) mg/dl Creatinine Cancelled (0.6-1.2) mg/dl Est Cr Clr Drug Dosing Cancelled ml/min Est GFR ( Amer) Cancelled ml/min Est GFR (Non-Af Amer) Cancelled ml/min BUN/Creatinine Ratio Cancelled (10-20) Glucose Cancelled (70-99(Fasting)) mg/dl Calcium Cancelled (8.5-10.1) mg/dl Total Bilirubin Cancelled (0.2-1.0) mg/dl AST Cancelled (13-39) U/L ALT Cancelled (7-52) U/L Alkaline Phosphatase Cancelled (34-104) U/L Total Protein Cancelled (6.0-8.3) gm/dl Albumin Cancelled (3.4-5.0) gm/dl Globulin Cancelled (2.5-4.0) gm/dl Albumin/Globulin Ratio Cancelled (0.9-2) Amylase 51 (25-115) U/L Lipase 39 (11-82) U/L Urine Color Urine Appearance (Clear) Urine pH (4.5-7.5) POC Urine pH (4.5-7.5) Ur Specific [place] (1.000-1.030) Urine Protein (Negative) POC Urine Protein (Negative) Urine Glucose (UA) (Negative) POC Ur Glucose (UA) (Normal) Urine Ketones (Negative) POC Urine Ketones (Negative) Urine Blood (Negative) POC Urine Blood (Negative) Urine Nitrite (Negative) POC Urine Nitrite (Negative) Urine Bilirubin (Negative) POC Urine Bilirubin (Negative) Urine Urobilinogen (Negative) POC Urine Urobilinogen (Normal) Ur Leukocyte Esterase (Negative) POC U Leukocyte Esteras (Negative) SARS-CoV-2, RNA, NAAT (NEGATIVE) 07/09/22 Range/Units 20:03 WBC (4.8-10.8) K/ul RBC (4.20-5.40) M/uL Hgb (12.0-16.0) g/dl Hct (37.0-47.0) % MCV (80.0-100.0) fL MCH (25.0-34.0) pg MCHC (32.0-36.0) g/dL RDW Std Deviation (36.4-46.3) fL RDW Coeff of Zachery (11.5-14.5) % Plt Count (130-400) K/uL MPV (9.4-12.4) fL Immature Gran % (Auto) % Neut % (Auto) % Lymph % (Auto) % [place] % (Auto) % Eos % (Auto) % Baso % (Auto) % Neut # (Auto) (1.40-6.50) K/uL Lymph # (Auto) (1.2-3.4) K/uL [place] # (Auto) (0.11-0.59) K/uL Eos # (Auto) (0-0.50) K/uL Baso # (Auto) (0-0.2) K/uL Immature Gran # (Auto) (0.01-0.20) K/uL Sodium 137 (136-145) mmol/L Potassium 3.8 (3.5-5.1) mmol/L Chloride 102 (98-107) mmol/L Carbon Dioxide 29 (21-32) mmol/L Anion Gap 6 (3-11) BUN 17 (6-23) mg/dl Creatinine 0.73 (0.6-1.2) mg/dl Est Cr Clr Drug Dosing 80.6 ml/min Est GFR ( Amer) 102.3 ml/min Est GFR (Non-Af Amer) 88.3 ml/min BUN/Creatinine Ratio 23.3 H (10-20) Glucose 125 H (70-99(Fasting)) mg/dl Calcium 10.1 (8.5-10.1) mg/dl Total Bilirubin 0.3 (0.2-1.0) mg/dl AST 19 (13-39) U/L ALT 11 (7-52) U/L Alkaline Phosphatase 76 (34-104) U/L Total Protein 7.5 (6.0-8.3) gm/dl Albumin 4.3 (3.4-5.0) gm/dl Globulin 3.2 (2.5-4.0) gm/dl Albumin/Globulin Ratio 1.3 (0.9-2) Amylase (25-115) U/L Lipase (11-82) U/L Urine Color Urine Appearance (Clear) Urine pH (4.5-7.5) POC Urine pH (4.5-7.5) Ur Specific [place] (1.000-1.030) Urine Protein (Negative) POC Urine Protein (Negative) Urine Glucose (UA) (Negative) POC Ur Glucose (UA) (Normal) Urine Ketones (Negative) POC Urine Ketones (Negative) Urine Blood (Negative) POC Urine Blood (Negative) Urine Nitrite (Negative) POC Urine Nitrite (Negative) Urine Bilirubin (Negative) POC Urine Bilirubin (Negative) Urine Urobilinogen (Negative) POC Urine Urobilinogen (Normal) Ur Leukocyte Esterase (Negative) POC U Leukocyte Esteras (Negative) SARS-CoV-2, RNA, NAAT (NEGATIVE) Diagnostic Findings US gallbladder HISTORY: 61 years-old Female RUQ pain . Right upper quadrant abdominal pain COMPARISON: 07/11/2011 TECHNIQUE: Multiple real-time sonographic images of the abdominal right upper quadrant were obtained assessing grayscale appearance and color flow FINDINGS: The pancreas is obscured by bowel gas. Increased echogenicity of the liver. Hepatic cysts measure up to approximately 1.5 cm. Echogenic lesion of the right hepatic lobe measures 6.4 x 3.1 x 3.9 cm. On the prior study, several hepatic hemangiomata were noted measuring up to approximately 4.3 cm. Distended gallbladder measuring up to 9.9 cm in length. Edematous gallbladder wall thickening measures up to approximately 7 mm. Layering sludge with cholelithiasis and trace pericholecystic fluid. 7 mm stone within the gallbladder neck appears to be nonmobile. Sonographic Merino sign was unable to be assessed secondary to pain medication recently administered to the patient. Common bile duct, 5 mm. The previous noted gallbladder polyps are not definitively seen. Imaged right kidney is unremarkable. IMPRESSION: 1. Cholelithiasis with findings suggestive of acute cholecystitis. 2. No biliary ductal dilation. 3. Echogenic lesion of the hepatic dome suggestive of a probable hemangiom Code Status & VTE Plan VTE Prophylaxis Plan VTE Prophylaxis will be ordered: Yes
[2022-07-10] MEDS ORDERED: BUPIVACAINE/EPINEPHRINE 0.25% 1:200,000 30 ML VIAL ONE (12:33)
[2022-07-10] MEDS ORDERED: SUGAMMADEX SODIUM 200 MG/2 ML VIAL IV ONE (12:43)
[2022-07-10] MEDS ORDERED: ePHEDrine sulfate 50 MG/ML SYR ONE (13:07)
--- NOTE | 2022-07-10 13:30 | Post Operative Brief Note ---
Immediate Post Op Note v1 Date of Surgery July 10, 2022 Pre & Post Diagnosis Operation Date: 07/10/22 11:10 Pre-Op Diagnosis: Acute Cholecystitis Post-Op Diagnosis: Acute Cholecystitis I identified the patient and participated in the time-out.: Yes Procedure Operation Date: 07/10/22 11:10 Actual Procedures p Laparoscopic Cholecystectomy(Not Applicable) - Delon Owen MD Surgeon Delon Owen MD Paint Mixer VINCENZO Fischer assisted with tissue retraction, camera op, closure Estimated Blood Loss 5 Findings Consistent with Post-Op Diagnosis Acute cholecystitis
--- NOTE | 2022-07-10 13:31 | Operative Report ---
Post Operative Report Pre & Post Diagnosis Operation Date: 07/10/22 11:10 Pre-Op Diagnosis: Acute Cholecystitis Post-Op Diagnosis: Acute Cholecystitis I identified the patient and participated in the time-out.: Yes Procedure Operation Date: 07/10/22 11:10 Actual Procedures p Laparoscopic Cholecystectomy(Not Applicable) - Delon Owen MD Surgeon Delon Owen MD Dairy Farm Manager VINCENZO Fischer assisted with tissue retraction, camera op, closure Estimated Blood Loss 5 Findings Consistent with Post-Op Diagnosis Acute cholecystitis Specimens Gallbladder Drains None Anesthesia Type General Complications No immediate complications Description of Procedure The patient was taken to the operating room, and placed supine on the operating table. A timeout was performed, perioperative antibiotics were administered, SCD boots were placed. After adequate anesthesia and analgesia was obtained, the abdomen was prepped and draped in the normal sterile fashion. Local anesthetic was injected into and around the proposed incision sites. An incision was made with a 15 blade scalpel in the supraumbilical region and carried down to the level of the fascia. The fascia was grasped with a trach hook, and a varies needle was used to enter the abdominal cavity. The abdomen was insufflated to a pressure of 15 mmHg, and a 11 mm trocar was placed in this location. A 10 mm, 30 degree laparoscope was placed into the abdominal cavity, and the abdomen was surveyed. Two 5 mm trochars were placed along the right costal margin, and one 5 mm trocar was placed in the subxiphoid region under direct visualization. The gallbladder was grasped and retracted cephalad and laterally, exposing the triangle of Calot. There was significant acute edematous inflammation within the gallbladder plate and triangle of [place]ot. Dissection began in the triangle with a combination of blunt dissection with the [place] dissector, and judicious use of the hook cautery. The cystic duct and cystic artery were dissected free circumferentially, and a critical view of safety was obtained. The cystic duct and cystic artery were clipped and transected, and the gallbladder was removed from the gallbladder fossa with the hook cautery. The camera was switched to a 5 mm, the gallbladder was placed in an Endo Catch bag, and removed via the supraumbilical port site. The camera was switched back to the 10 mm camera, and the abdomen was surveyed again. Hemostasis was checked and attended, and was excellent. The abdomen was copiously irrigated and suctioned free. Again hemostasis was checked and was excellent. All trochars were removed under direct visualization. The abdomen was desufflated. The fascia in the 11 mm port site was closed with a 0 Vicryl suture. The skin was closed with a running 4-0 Monocryl subcuticular stitch. Dermabond was applied. The patient tolerated the procedure without complication, and was transferred in stable condition to the PACU. All instrument, needle, and sponge counts were correct at the end of the case. My teachers assistant was necessary throughout the procedure for tissue retraction, possible camera operation, and closure of the wounds. I understand that section 1842(b)(7)(D) of the Social Security act generally prohibits Medicare physician fee schedule payment for the services of assistants at surgery in teaching hospitals when qualified residents are available to furnish such services. I certify that the services for which payment is claimed were medically necessary and that no qualified resident was available to perform the services. I further understand that these services are subject to postpayment review by the Medicare carrier. I attest to the content of the Intraoperative Record and any orders documented therein. Any exceptions are noted below.
[2022-07-10] MEDS: fentaNYL citrate 100 MCG/2 ML VIAL IV PRN ×2 (13:46→13:51)
--- NOTE | 2022-07-10 14:02 | Anesthesiology Progress Note ---
Date of Service July 10, 2022 Anesthesia Post Procedure Vital Signs Vital Signs: Temp Pulse Pulse Pulse Resp BP BP 07/10/22 13:55 78 15 130/72 07/10/22 13:45 85 21 126/72 07/10/22 13:37 97.5 F L 98 H 18 110/65 07/10/22 06:24 97.4 F L 82 18 07/10/22 05:38 72 17 07/10/22 04:00 69 17 07/10/22 01:45 72 07/10/22 01:46 64 18 07/09/22 22:37 80 18 07/09/22 20:00 98.1 F 79 16 152/93 H BP Pulse Ox O2 Del Method O2 Flow Rate 07/10/22 13:55 93 Nasal Cannula 2 07/10/22 13:45 97 Oxymask 4 07/10/22 13:37 98 Oxymask 4 07/10/22 06:24 157/92 H 98 Room Air 07/10/22 05:38 108/80 98 Room Air 07/10/22 04:00 124/74 97 Room Air 07/10/22 01:45 07/10/22 01:46 132/84 97 Room Air 07/09/22 22:37 145/90 H 97 Room Air 07/09/22 20:00 98 Room Air Pain Intensity Right Abdomen: Pain Intensity: 3 Abdomen: Pain Intensity: 5 Transfer of Care Handoff Completed per policy Notes Mental Status: alert / awake / arousable and participated in evaluation Patient Amnestic to Procedure: Yes Nausea / Vomiting: adequately controlled Pain: adequately controlled and improving with treatment Airway Patency, RR, SpO2: stable & adequate BP & HR: stable & adequate Hydration State: stable & adequate Anesthetic Complications: no major complications apparent and Pt Satisfied with anesthetic care
[2022-07-10] MEDS ORDERED: oxyCODONE/ACETAMINOPHEN 5mg/325mg TAB PO PRN (14:22)
[2022-07-10] MEDS: ONDANSETRON INJ 2 MG/ML 2 ML VIAL IV PRN ×2 (16:11→21:32)
[2022-07-11] MEDS: SODIUM CHLORIDE 0.9% 1000ML 1,000 ML IV SCH (04:53)
[2022-07-11] MEDS: cefTRIAXone SODIUM 2,000 MG in DEXTROSE 5% 50 ML IV SCH (06:31)
[2022-07-11] MEDS: FAMOTIDINE 20 MG in SYRINGE 3 ML IV SCH (07:56)
[2022-07-11] MEDS: lisinopril 40 MG TAB PO SCH (07:57)
[2022-07-11] MEDS: dilTIAZem HCL 180 MG CAPCR PO SCH (07:57)
[2022-07-11] MEDS ORDERED: POTASSIUM CHLORIDE 10 MEQ TABCR PO SCH (09:00)
[2022-07-11] MEDS ORDERED: FUROSEMIDE 20 MG TAB PO SCH (09:00)
--- NOTE | 2022-07-11 09:15 | Discharge Summary ---
Date of Service July 11, 2022 Admission HPI Per Admitting Provider Anabella is a 61 year-old female with history of thoracic aortic aneurysm s/p repair in 2019 at [facility] [place] , ovarian cyst s/p laparoscopic removal of left ovary, Hypertension, cardiac murmur, osteoarthritis, bilateral lower extremity edema who presented to emergency department last evening with abdominal pain that began after eating lunch yesterday. States she has been having some mild abdominal pain after eating for last week but had hamburger and polish fries yesterday for lunch and then had severe abdominal pain with associated nausea. Denies fever, chills, vomiting, changes in bowel habits, chest pain , shortness of breath. States she was having alot of pain which was not resolved and presented to ED Current feeling much better, had pain medication and pain mostly resolved. No further nausea. No vomiting. No chest pain or shortness of breath. No prior history of gallbladder issues. History of thoracic aortic aneurysm repair at [facility] [place] in 2018, stable CTA in may. No cardiac complications or issues since surgery. History of laparoscopic bilateral oophorectomy in July 2021. Principal Diagnosis Acute calculous cholecystitis Discharge Exam Constitutional WD/WN, vitals as above cooperative and comfortable; no acute distress, not ill appearing and not frail appearing Respiratory normal respiratory effort; no respiratory distress Gastrointestinal (Abdomen) Inspection/Auscultation: abdomen normal to inspection and + abdominal surgical incision (clean/dry/intact with dermabond. ); abdomen not distended Percussion/Palpation: + abdomen tender (mild at incision sites) and abdomen soft; no guarding and abdomen not rigid Skin no rashes, warm and dry no jaundice Psychiatric A+Ox3, euthymic affect Discharge Data Allergies Allergy/AdvReac Type Severity Reaction Status Date / Time tetracycline Allergy Intermediate RASH Verified 07/10/22 01:44 metoprolol AdvReac Mild fluid Verified 07/10/22 01:44 retention Consultations 07/10/22 01:32 Consult General Surgery Stat Procedures Performed Operation Date: 07/10/22 11:10 Actual Procedures p Laparoscopic Cholecystectomy(Not Applicable) - Delon Owen MD Ordered Studies 07/09/22 22:42 US gallbladder Urgent Hospital Course (1) Acute calculous cholecystitis: (2) Acute cholecystitis: Plan Patient was admitted to medical floor from emergency department and scheduled for laparoscopic cholecystectomy. She was found to have acute cholecystitis. She tolerated procedure without difficulty and transferred back to medical/surgical floor for postoperative care. Diet was advanced to clear liquids and then as tolerated. PO Tylenol as needed for pain was all she needed postoperatively. She did have an episode of nausea and vomiting postop but that resolved. Patient was tolerating diet, ambulating, and urianting without difficulty on POD # 1 and discharged home in stable condition. Total Time Total Time Spent Total Time Spent (In Minutes): 30 minutes Total Time Includes: Examination of the Patient, Discharge Planning and Medication Reconciliation Discharge Plan Discharge Items Patient Disposition: Home - Self-Care Reason For Visit: ACUTE CHOLECYSTITIS Discharge Diagnosis: Acute calculous cholecystitis Activity: Per Instructions section Non-emergency contact: Primary Care Provider and Surgeon Call non-emergency contact if: you have any medication questions, your pain is not controlled, your pain is worsening, your pain is concerning for you, you have a fever, your wound has increased redness, your wound has increased drainage and your wound pain has increased Follow-up/Referrals: Sherrie Umanzor MD [Primary Care Provider] - Diet: Regular Addtl Attending Provider Instructions: Post-Surgical ~Discharge Instructions Activity Recommendations: - lifting limitation: (20 pounds for 2-3 weeks), - exercise/sex/sports limit: (nonstrenuous for 2 weeks), - driving or machine use limit: (none for 1 week), - Shower/bathe limit: (may shower ) Diet: - Resume previous diet SPECIAL CARE INSTRUCTIONS: - May shower . Let water run over area and pat dry. - Surgical glue will fall off on its own. - Call the surgeon's office with any questions or concerns - - (ex. temperature higher than 101 degrees F, excessive bleeding or pain). MEDICATIONS: - Resume previous medications unless instructed otherwise by your surgeon. -650 mg Tylenol every 6 hours as needed - Ibuprofen 600 mg every 6 hours as needed (take with food) FOLLOW UP VISIT: - If not already scheduled, please call the office to schedule a two week follow-up appointment. Office number Pending Studies at Discharge: Yes (gallbladder pathology) Stand-Alone Forms: [employer] Smoking Cessation Medications and DC Order Prescriptions: Continued potassium chloride 10 mEq Tablet Extended Release 10 meq PO QAM furosemide 20 mg Tablet 20 mg PO QAM lisinopril 40 mg Tablet 40 mg PO QAM cholecalciferol (vitamin D3) [Vitamin D3] 25 mcg (1,000 unit) Capsule 25 mcg PO QAM diltiazem HCl 180 mg Tablet Extended Release 24 Hr 180 mg PO QAM Discharge Orders: Discharge Order (Routine); Ordered 07/11/22 Ordered By: Kay Duran/Other Patient Handouts: Cholecystectomy Admission Data Admit Date/Time: 07/10/22 01:36 Attending Provider: Patricia Eaton Admit Provider: Patricia Eaton Primary Care Provider: Sherrie Umanzor Other Providers: Patricia Eaton Other Interventions: Discharge Summary Assessment (RN) Last Done: 07/11/22 12:08
[2022-07-11] MEDS ORDERED: ACETAMINOPHEN 325 MG TAB PO PRN (11:39)
== END 2022-07-11 13:28 | disposition home or self-care (01) ==
LOC: 3W 19:56 → ED 19:56 → 3W 07-10 05:43